=== PATIENT | female | born 1995 | race Caucasian/White ===

== ENCOUNTER 2016-09-12 17:17 | Emergency (ER) | payer BC ==
[~2016-09-12] VITALS: Ht 170.2 cm; Wt 68.2 kg
[~2016-09-12 17:17] MED LIST: CEPHALEXIN500 M1 PO; DEPO-PROVER150 MG/M1; MOTRIN 600600 MG/TAB PO; NORCO 325 MG-51 TAB PO; SEPTRA DS 8001 TAB PO
[2016-09-12 17:19] VITALS: BP 124/73; TEMP 97.8
[2016-09-12] MEDS ORDERED: NORCO 325 MG-51 TAB PO (18:34)
[2016-09-12 18:55] VITALS: PULSE 79
== END 2016-09-12 19:30 | disposition home or self-care (01) ==
LOC: COL.ER 17:17
DX: S52.571A Other intraarticular fracture of lower end of right radius, initial encounter for closed fracture (principal); S52.611A Displaced fracture of right ulna styloid process, initial encounter for closed fracture; W55.22XA Struck by cow, initial encounter